=== PATIENT | female | born 1940 | race Caucasian/White ===

== ENCOUNTER 2018-01-28 09:52 | Day surgery (SDC) | payer MEDICARE, OTHER ==
[2018-01-25 12:36] VITALS: BMI 40.9
--- NOTE | 2018-01-28 13:36 | OP ---
PREOPERATIVE DIAGNOSES: Epigastric pain, gastroesophageal reflux disease, history of adenomatous col on polyps and chronic diarrhea. PROCEDURE IN DETAIL: After informed consent was obtained, the patient was placed in the left lateral decubitus position. Anesthesia was administered per the Anesthesia Department. Forward-viewing end oscope was inserted into the esophagus under direct visualization with ease and passed to the second portion of the duodenum with ease. Second portion of the duodenum and duodenal bulb were normal. Ra ndom biopsies were taken from the second portion of the duodenum. The pylorus was normal. In the pr epyloric antrum, some nodular folds were noted and these were biopsied. Retroflexion in the stomach was normal except for a large hiatal hernia. The esophagus was normal throughout. ASSESSMENT: 1. Large hiatal hernia. 2. Nodular gastritis in the antrum - status post biopsy. 3. Random biopsies of the second portion of the duodenum. 4. Otherwise normal esophagogastroduodenoscopy. RECOMMENDATIONS: 1. Await histopathology. 2. Proceed with colonoscopy. PROCEDURE IN DETAIL: After informed consent was obtained, the patient was placed in the left lateral decubitus position. Anesthesia was administered per the Anesthesia Department. Forward-viewing end oscope was inserted into the rectum after perianal inspection and rectal exam were normal and passed to the cecum and ileum with ease. The ileum, ileocecal valve, and appendiceal orifice were normal. The prep was excellent. The ascending, transverse, descending, sigmoid and rectum were all normal ex cept for multiple polyps. Most of these polyps were pedunculated. There were 1 polyp in the rectum, 2 in the sigmoid, 3 in the descending, 5 in the transverse and 3 in the ascending. Random biopsies were also taken randomly from the colon. ASSESSMENT: 1. A 14 colon polyps - status post polypectomy. 2. Internal hemorrhoids. 3. Otherwise normal ileocolonoscopy. RECOMMENDATION: 1. Await histopathology. 2. Repeat colonoscopy based on histopathology results.
== END 2018-01-28 14:10 | disposition home or self-care (01) ==
LOC: SDC 09:52
PROVIDERS: ATTEND Internal Medicine Gastroenterology
PROC: 0DB98ZX Excision of Duodenum, Via Natural or Artificial Opening Endoscopic, Diagnostic (ICD-10-PCS; principal; 2018-01-28)
PROC: 0DB78ZX Excision of Stomach, Pylorus, Via Natural or Artificial Opening Endoscopic, Diagnostic (ICD-10-PCS; 2018-01-28)
PROC: 0DBK8ZX Excision of Ascending Colon, Via Natural or Artificial Opening Endoscopic, Diagnostic (ICD-10-PCS; 2018-01-28)
PROC: 0DBL8ZX Excision of Transverse Colon, Via Natural or Artificial Opening Endoscopic, Diagnostic (ICD-10-PCS; 2018-01-28)
PROC: 0DBN8ZX Excision of Sigmoid Colon, Via Natural or Artificial Opening Endoscopic, Diagnostic (ICD-10-PCS; 2018-01-28)
PROC: 0DBP8ZX Excision of Rectum, Via Natural or Artificial Opening Endoscopic, Diagnostic (ICD-10-PCS; 2018-01-28)
PROC: 0DBM8ZX Excision of Descending Colon, Via Natural or Artificial Opening Endoscopic, Diagnostic (ICD-10-PCS; 2018-01-28)
DX: D12.6 Benign neoplasm of colon, unspecified (principal); K31.9 Disease of stomach and duodenum, unspecified; K29.60 Other gastritis without bleeding; K21.9 Gastro-esophageal reflux disease without esophagitis; K52.9 Noninfective gastroenteritis and colitis, unspecified; K44.9 Diaphragmatic hernia without obstruction or gangrene; K64.8 Other hemorrhoids; Z86.010 Personal history of colon polyps; Z79.4 Long term (current) use of insulin; Z79.82 Long term (current) use of aspirin; Z79.899 Other long term (current) drug therapy
CPT/HCPCS: 36416; 88305; 88312

== ENCOUNTER 2018-11-24 12:41 | Emergency (ER) | payer MEDICARE, OTHER ==
[2018-11-24 13:46] LABS: #Basophils 0.1 thou/uL (0.0-0.2); #Eosinphils 0.1 thou/uL (0.0-0.7); #Lymphocytes 2.5 thou/uL (1.20-3.40); #Monocytes 0.8 thou/uL (0.11-0.59); #Neutrophils 4.4 thou/uL (1.40-6.50); %Basophils 1.4 % (0.0-1.0); %Lymphocytes 31.5 % (21.0-51.0); %Monocytes 9.9 % (0.0-10.0); %Neutrophils 56.3 % (42.0-75.0); Hemoglobin 11.4 g/dL (12.0-16.0); Mean Corpuscular HGB CONC 34.2 g/dL (32.0-36.0); Mean Corpuscular Hemoglobin 35.5 pg (27.0-31.0); Mean Platelet Volume 7.8 fL (7.4-10.4); Platelet Count 263 thou/uL (130-400); RBC Distribution Width 13.1 % (11.5-14.5); Red Blood Cell (RBC) Count 3.21 mill/uL (4.20-5.40); White Blood Cell (WBC) Count 7.8 thou/uL (4.8-10.8)
[2018-11-24 14:06] LABS: ALT (SGPT) 11 U/L (8-55); AST (SGOT) 10 U/L (5-34); Albumin 4.1 g/dL (3.4-4.8); Alkaline Phosphatase 87 U/L (40-150); Anion Gap 17 mmol/L (10-20); BUN (Urea Nitrogen) 39 mg/dL (9.8-20.1); Bilirubin, Total 0.4 mg/dL (0.2-1.2); Calc. Creatinine Clearance 0 mL/min (70-130); Calcium 9.7 mg/dL (7.8-10.44); Carbon Dioxide 21 mmol/L (23-31); Chloride 107 mmol/L (98-107); Estimated GFR-MDRD 32; Globulin 3.2 g/dL (2.4-3.5); Glucose 233 mg/dL (83-110); Potassium 4.6 mmol/L (3.5-5.1); Protein, Total 7.3 g/dL (6.0-8.3); Sodium 140 mmol/L (136-145)
--- NOTE | 2018-11-24 14:07 | RAD ---
EXAM: Portable chest PROVIDED CLINICAL HISTORY: Chest pain COMPARISON: 01/28/2009 FINDINGS: Evaluation is limited by lung hypoinflation and patient body habitus. Cardiac silhouette appears enla rged. Left subclavian cardiac pacing device, median sternotomy changes, dorsal column stimulator device noted. Hiatal hernia suspected. No focal consolidation, pleural fluid or pneumothorax evident. IMPRESSION: Hypoinflated exam.
== END 2018-11-24 16:00 | disposition home or self-care (01) ==
LOC: ERS 12:41
DX: I13.0 Hypertensive heart and chronic kidney disease with heart failure and stage 1 through stage 4 chronic kidney disease, or unspecified chronic kidney disease (principal); E11.22 Type 2 diabetes mellitus with diabetic chronic kidney disease; N18.9 Chronic kidney disease, unspecified; I50.9 Heart failure, unspecified; I25.10 Atherosclerotic heart disease of native coronary artery without angina pectoris; I25.2 Old myocardial infarction; Z79.4 Long term (current) use of insulin; Z79.82 Long term (current) use of aspirin; Z79.899 Other long term (current) drug therapy
CPT/HCPCS: 71045; 80053; 83880; 84484; 85025; 93005

== ENCOUNTER 2020-03-23 12:24 | Inpatient (IN) | payer MEDICARE, OTHER ==
[~2020-03-23 12:24] MED LIST: Iopamidol 370 76% 100 ML VIAL ONE
--- NOTE | 2020-03-23 13:16 | RAD ---
Exam: Chest one view HISTORY:Altered mental status Comparison: Syncopal episode FINDINGS: Cardiac silhouette:Normal cardiac silhouette. Stable 3-lead defibrillator. Stable sternotomy wires. Aorta: Atherosclerosis Pulmonary vessels: Normal Costophrenic angles: Clear LUNGS: Persistently diminished lung volumes with chronic changes. Accentuation of the interstitium ma y be due to diminished lung volumes. However, edema cannot be excluded. No consolidation or mass. Pneumothorax: None Osseous abnormalities: None IMPRESSION: 1. Atherosclerosis. 2. Persistently diminished lung volumes. There is resultant accentuation of the interstitium. Edema c annot be excluded.
[2020-03-23 13:17] LABS: Bacteria/HPF None Seen HPF (None Seen); Bilirubin Negative (Negative); Blood, Urine Negative (Negative); Clarity Clear (Clear); Glucose, Urine (Dipstick) Greater than 1000 mg/dL (Negative); Ketone, Urine 20 mg/dL (Negative); Leukocyte Negative Leu/uL (Negative); Nitrite Negative (Negative); Protein, Urine (Dipstick) 30 mg/dL (Neg-Trace); RBC/HPF 0-3 HPF (0-3); Specific Gravity, Urine 1.016 (1.002-1.036); Squamous Epithelial 0-3 HPF (0-3); Urobilinogen Normal mg/dL (Less than 2); WBC/HPF 0-3 HPF (0-3)
[2020-03-23 13:48] LABS: #Eosinphils 0.1 thou/uL (0.0-0.7); #Lymphocytes 1.3 thou/uL (1.20-3.40); #Monocytes 0.7 thou/uL (0.11-0.59); #Neutrophils 5.8 thou/uL (1.40-6.50); %Basophils 0.6 % (0.0-1.0); %Eosinophils 1.3 % (0.0-10.0); %Lymphocytes 16.8 % (21.0-51.0); %Monocytes 8.2 % (0.0-10.0); %Neutrophils 73.1 % (42.0-75.0); Hemoglobin 12.6 g/dL (12.0-16.0); Mean Corpuscular HGB CONC 33.9 g/dL (32.0-36.0); Mean Corpuscular Hemoglobin 32.7 pg (27.0-31.0); Mean Corpuscular Volume 96.5 fL (78.0-98.0); Mean Platelet Volume 8.2 fL (7.4-10.4); Platelet Count 225 thou/uL (130-400); RBC Distribution Width 13.5 % (11.5-14.5); Red Blood Cell (RBC) Count 3.86 mill/uL (4.20-5.40)
[2020-03-23 14:14] LABS: ALT (SGPT) 12 U/L (8-55); AST (SGOT) 13 U/L (5-34); Albumin 3.8 g/dL (3.4-4.8); Alkaline Phosphatase 82 U/L (40-110); Anion Gap 18 mmol/L (10-20); BUN (Urea Nitrogen) 31 mg/dL (9.8-20.1); Bilirubin, Total 0.4 mg/dL (0.2-1.2); Calc. Creatinine Clearance 0 mL/min (70-130); Calcium 9.4 mg/dL (7.8-10.44); Carbon Dioxide 19 mmol/L (23-31); Chloride 104 mmol/L (98-107); Estimated GFR-MDRD 34; Globulin 3.2 g/dL (2.4-3.5); Potassium 4.3 mmol/L (3.5-5.1); Sodium 137 mmol/L (136-145)
[2020-03-23 14:19] LABS: Glucose 635 mg/dL (83-110)
[2020-03-23] MEDS ORDERED: NS 0.9% w/ 20 MEQ KCL 1,000 ML IV SCH (15:30)
[2020-03-23] MEDS ORDERED: Cefepime 2 GM VIAL ONE (15:34)
[2020-03-23] MEDS ORDERED: Aspirin 325 MG TAB ONE (15:34)
[2020-03-23] MEDS ORDERED: INSULIN REGULAR IN 0.9 % NACL 100 UNIT/100 ML BAG ONE (15:34)
[2020-03-23] MEDS ORDERED: Insulin Regular 300 UNITS/3 ML VIAL ONE ×2 (15:36→20:47)
[2020-03-23 16:07] LABS: Base Excess-Venous -2.6 mmol/L (-2.0 to 3.0); Bicarbonate (HCO3v) 22.7 mmol/L (22.0-28.0); CO2 Tension (PvCO2) 40.5 mmHg (40.0-50.0); Calcium, Ionized 1.15 mmol/L (1.15-1.33); Chloride 108 mmol/L (98-107); Hemoglobin - Calc 13.3 g/dL (12.0-16.0); Potassium 4.1 mmol/L (3.5-5.1); Sodium 139 mmol/L (138-145); vO2 Saturation-calc 89.8 % (60.0-85.0)
[2020-03-23 16:45] LABS: PTT 32.6 sec (22.9-36.1); Prothrombin Time 13.6 sec (12.0-14.7)
[2020-03-23 16:51] LABS: Hemoglobin A1c 9.1 % (4.0-6.0)
[2020-03-23 17:00] LABS: Troponin I 0.125 ng/mL (< 0.028)
[2020-03-23 17:03] LABS: Phosphorus 1.6 mg/dL (2.3-4.7)
[2020-03-23] MEDS ORDERED: Sodium Chloride 0.9% 1,000 ML IV PRN ×4 (17:10)
[2020-03-23] MEDS ORDERED: Electrolyte Replacement Protoc 1 EACH EACH IVPB ONE (17:10)
[2020-03-23] MEDS ORDERED: NS 0.9% w/ 20 MEQ KCL 1,000 ML IV PRN ×2 (17:10)
[2020-03-23] MEDS ORDERED: Dextrose 5 %-0.45 % NaCl 1,000 ML IV PRN (17:10)
[2020-03-23] MEDS ORDERED: D5 1/2 NS w/20 mEq KCL 1,000 ML IV PRN (17:10)
[2020-03-23] MEDS ORDERED: Acetaminophen 325 MG TAB PO PRN (17:11)
[2020-03-23] MEDS ORDERED: Ondansetron PF 4 MG/2 ML Vial IVP PRN (17:11)
[2020-03-23] MEDS ORDERED: Senokot S 8.6-50 MG TAB PO PRN (17:11)
[2020-03-23] MEDS ORDERED: Ondansetron ODT 4 MG TAB PO PRN (17:11)
[2020-03-23] MEDS ORDERED: HUMULIN R 100 UNITS in Sodium Chloride 0.9% 100 ML IVPB SCH (17:15)
[2020-03-23 17:44] LABS: Anion Gap 18 mmol/L (10-20); BUN (Urea Nitrogen) 30 mg/dL (9.8-20.1); Calc. Creatinine Clearance 0 mL/min (70-130); Calcium 9.3 mg/dL (7.8-10.44); Carbon Dioxide 18 mmol/L (23-31); Chloride 107 mmol/L (98-107); Estimated GFR-MDRD 33; Glucose 488 mg/dL (83-110); Potassium 4.3 mmol/L (3.5-5.1); Sodium 139 mmol/L (136-145)
[2020-03-23] MEDS ORDERED: Potassium Phosphate 15 MMOL in Sodium Chloride 0.9% 250 ML 250 ML IVPB SCH (18:30)
[2020-03-23] MEDS ORDERED: Electrolyte Replacement Protoc 1 EACH EACH IVPB SCH (18:45)
[2020-03-23] MEDS ORDERED: Insulin Regular 300 UNITS/3 ML VIAL SC PRN ×2 (19:21)
[2020-03-23] MEDS ORDERED: Dextrose 50% Abboject 50 ML SYRINGE SLOW IVP PRN (19:21)
[2020-03-23] MEDS ORDERED: Dextrose 5% in Water 1,000 ML IV PRN (19:21)
[2020-03-23] MEDS ORDERED: Nitroglycerin 0.4 MG TAB (25 Tab Bottle) SL PRN (19:24)
[2020-03-23 20:02] LABS: Troponin I 0.285 ng/mL (< 0.028)
--- NOTE | 2020-03-23 20:53 | HP ---
PRIMARY CARE PHYSICIAN: Dr. Thompson at [facility]. CHIEF COMPLAINT: Altered mentation. HISTORY OF PRESENT ILLNESS: The patient is a 79-year-old female with diabetes mellitus type 2, coronary artery disease status post CABG, with recent rib fractures, presented to the emergency room with altered mentation. History obtained from the daughter at the bedside. The patient had rib fractures approximately 10 days ago, when she was doing laundry. She bent forward over the washing machine to reach down into the bottom of it, when she heard and felt a snap. Workup was consistent with multiple rib fractures on the right side. She was managed conservatively with pain medications. She also has a long history of diabetes and is on Levemir. The patient was brought into the emergency room due to altered mentation. The last time she was seen normal was yesterday. The patient's daughter went to check on her and was found to have more confusion with disorientation on her couch. There was no fall, fever, or other symptoms reported. The patient denies any chest discomfort, palpitations, or syncope. In the emergency room, her initial vital signs showed temperature 98, respirations of 20, pulse rate of 110, with blood pressure of 142/69, O2 saturation 99% on room air. She was found to have blood sugar of 635, with ketones of 1.52. Her serum osmolality was 323, with hemoglobin A1c of 9.1. She was started on IV hydration for possible hyperosmolar hyperglycemia. She also received 2 g IV cefepime. Blood cultures and urine cultures were sent. PAST MEDICAL HISTORY: 1. Coronary artery disease, status post CABG, followed by Dr. Aguilar. 2. History of carotid artery disease, status post stent placement. 3. Cardiomyopathy with ejection fraction 40% to 45%. 4. Anxiety. 5. History of AICD placement. 6. Anemia. 7. Claustrophobia. 8. Chronic pain syndrome. 9. Diabetes mellitus, type 2. 10. Fibromyalgia. 11. GERD. 12. History of coronary stent placement. 13. History of renal stent placement. 14. Hypertension. 15. Hyperlipidemia. 16. History of TIA. PAST SURGICAL HISTORY: 1. Recent rib fracture. 2. Right carotid stent. 3. Cataract surgery. 4. Cholecystectomy. 5. Cardiac catheterization with stent placement. 6. Coronary artery bypass grafting. 7. Hysterectomy. 8. Renal artery stent placement. 9. Right total knee arthroplasty. ALLERGIES: THE PATIENT DENIES ANY DRUG ALLERGIES. CURRENT HOME MEDICATIONS: Family to provide accurate list of medications. The list got misplaced in the emergency room per family. SOCIAL HISTORY: The patient is . No smoking or drug use. She drinks alcohol socially. She does not have home health care. FAMILY HISTORY: Positive for heart disease. REVIEW OF SYSTEMS: Cannot be reliably obtained from the patient due to current mentation. PHYSICAL EXAMINATION: VITAL SIGNS: As discussed above. GENERAL: A 79-year-old female with altered mentation. Mentation is gradually improving. HEENT: Head, atraumatic and normocephalic. Sclerae are anicteric. Dry mucous membrane. No oral lesion. NECK: Supple. No JVD appreciated. No carotid bruit. LUNGS: Clear to auscultation bilaterally with diminished air entry at bilateral bases. HEART: S1 and S2 present, regular rate and rhythm. No rubs or gallops. ABDOMEN: Soft, nontender. Bowel sounds present. No rebound or guarding. EXTREMITIES: No calf tenderness. There is bilateral 1+ edema. NEUROLOGIC: Grossly nonfocal. Moves all 4 extremities. Power was 5/5 in all extremities. Detailed neurology and psychiatry examination cannot be reliably obtained due to current mentation. SKIN: Warm and dry. LYMPH NODES: No palpable lymph nodes in the neck. PERIPHERAL VASCULAR: Radial pulses palpable bilaterally, low volume. LABORATORY FINDINGS: Serum osmolality 323, with blood glucose of 635. Hemoglobin A1c 9.1. Troponin initially was 0.049. Repeat troponin was 0.125. Ketones 1.52. Creatinine 1.50, phosphorus 1.6, magnesium 2.0, with bicarbonate of 18, sodium 139, potassium 4.3. Urinalysis was negative for wbc or bacteria. IMAGING STUDIES: Chest x-ray by my review was negative for infiltrate or edema. CT of the [place] showed evidence of prior MCA infarction on the right without any acute hemorrhage. EKG by my review showed sinus tachycardia with frequent paced rhythm with nonspecific ST-T wave changes. IMPRESSION: 1. Toxic metabolic encephalopathy. 2. Suspected hyperosmolar hyperglycemic state of unclear etiology. 3. Severe dehydration with elevated osmolality of 323. 4. Chronic kidney disease, stage 3. 5. Elevated troponin, probably secondary to severe dehydration. 6. Metabolic acidosis, secondary to elevated ketones. 7. Hypophosphatemia. 8. Coronary artery disease, status post coronary artery bypass grafting and stent placement. 9. History of AICD placement. 10. Anxiety. 11. Recent rib fracture. 12. Chronic pain syndrome. 13. Hypertension. 14. Hyperlipidemia. 15. Gastroesophageal reflux disease. PLAN: The patient will be monitored in the IMCU. We will continue insulin drip along with IV fluids per DKA protocol. The family is able to name some of the medications, which will be started tonight. Rest of the medication to be restarted in a.m. We will also check AICD. Frequent neuro checks. DVT prophylaxis with subcu heparin. Physical therapy, occupation therapy. Echocardiogram will be obtained. We will recheck ketones in a.m. We will check basic metabolic profile every 4 hours. Code status: Full code. Surrogate decision maker: The patient makes her own decision with the help of her family. Contact number for daughter, Lamonte, . Lamonte was at the bedside in the emergency room. The patient will require 2 to 3 days for stabilization. Job ID: [id number]
[2020-03-23] MEDS ORDERED: Famotidine 20 MG TAB PO SCH (21:00)
[2020-03-23] MEDS ORDERED: cefTRIAXone\\ROCEPHIN 1 GM in Sodium Chloride 0.9% 100 ML IVPB SCH (21:00)
[2020-03-23] MEDS ORDERED: Famotidine/PF 20 mg/2ml Vial SLOW IVP SCH (21:00)
[2020-03-23] MEDS ORDERED: cefTRIAXone\\ROCEPHIN 1 GM VIAL ONE (22:10)
[2020-03-23] MEDS: Carvedilol 6.25 MG TAB PO SCH (22:18)
[2020-03-23] MEDS: NS 0.9% w/ 20 MEQ KCL 1,000 ML IV SCH (22:26)
[2020-03-23] MEDS ORDERED: Heparin 10,000 UNITS/ 10 ML VIAL ONE (23:51)
[2020-03-24] MEDS: Labetalol HCl 100 MG/20 ML VIAL SLOW IVP PRN ×4 (01:50→15:21)
[2020-03-24] MEDS: Heparin 5,000 UNITS/ML VIAL SC SCH ×3 (01:51→21:45)
[2020-03-24] MEDS: Magnesium 2 GM/50 ML 2 GM in Premix Bag 1 BAG IVPB SCH ×2 (02:05→05:22)
[2020-03-24 04:22] LABS: #Eosinphils 0.2 thou/uL (0.0-0.7); #Lymphocytes 1.9 thou/uL (1.20-3.40); %Basophils 0.4 % (0.0-1.0); %Eosinophils 1.8 % (0.0-10.0); %Lymphocytes 16.9 % (21.0-51.0); %Neutrophils 71.9 % (42.0-75.0); Hemoglobin 11.9 g/dL (12.0-16.0); Mean Corpuscular HGB CONC 34.4 g/dL (32.0-36.0); Mean Corpuscular Hemoglobin 32.7 pg (27.0-31.0); Mean Platelet Volume 8.2 fL (7.4-10.4); Platelet Count 223 thou/uL (130-400); RBC Distribution Width 13.7 % (11.5-14.5); Red Blood Cell (RBC) Count 3.66 mill/uL (4.20-5.40); White Blood Cell (WBC) Count 11.2 thou/uL (4.8-10.8)
[2020-03-24 04:36] LABS: ALT (SGPT) 9 U/L (8-55); AST (SGOT) 13 U/L (5-34); Albumin 3.5 g/dL (3.4-4.8); Alkaline Phosphatase 75 U/L (40-110); Anion Gap 17 mmol/L (10-20); BUN (Urea Nitrogen) 20 mg/dL (9.8-20.1); Bilirubin, Total 0.4 mg/dL (0.2-1.2); Calc. Creatinine Clearance 0 mL/min (70-130); Calcium 8.8 mg/dL (7.8-10.44); Carbon Dioxide 16 mmol/L (23-31); Chloride 111 mmol/L (98-107); Estimated GFR-MDRD 45; Globulin 2.8 g/dL (2.4-3.5); Glucose 380 mg/dL (83-110); Magnesium 1.9 mg/dL (1.6-2.6); Phosphorus 2.6 mg/dL (2.3-4.7); Potassium 4.2 mmol/L (3.5-5.1); Protein, Total 6.3 g/dL (6.0-8.3); Sodium 140 mmol/L (136-145)
[2020-03-24 04:47] VITALS: BMI 40.2
[2020-03-24] MEDS ORDERED: Magnesium 2 GM/50 ML 2 GM in Premix Bag 1 BAG IVPB SCH (05:15)
[2020-03-24] MEDS ORDERED: Sodium Chloride 0.9% 1,000 ML IV SCH (05:30)
[2020-03-24] MEDS: Insulin Regular 300 UNITS/3 ML VIAL SC PRN ×4 (05:40→22:49)
[2020-03-24] MEDS: Levothyroxine Sodium 75 MCG TAB PO SCH (05:42)
[2020-03-24] MEDS: NS 0.9% w/ 20 MEQ KCL 1,000 ML IV SCH (06:05)
[2020-03-24] MEDS: Carvedilol 6.25 MG TAB PO SCH ×2 (08:58→21:43)
[2020-03-24] MEDS: Clopidogrel Bisulfate 75 MG TAB PO SCH (08:58)
[2020-03-24] MEDS: Aspirin 81 mg Enteric Coated Tablet PO SCH (08:58)
[2020-03-24] MEDS ORDERED: Insulin Glargine 50 UNITS in Pre-Filled Syringe 1 EACH SC SCH (09:45)
--- NOTE | 2020-03-24 10:43 | CT ---
CT angiogram of the head and neck: 03/23/2020 Comparison made to prior head CT 10/08/2012 HISTORY: Altered mental status, possible drug overdose TECHNIQUE: Axial CT imaging at 5 mm intervals from vertex through skull base without contrast. Then, axial CT imaging at 1.25 mm intervals from the vertex through the lung apices with IV contrast using CT angiogram protocol. Coronal and sagittal 3-D reformatted imaging obtained. FINDINGS: The noncontrast enhanced head CT demonstrates encephalomalacia within the right frontal reg ion as on the prior examination, evidence of prior right MCA infarction. No intracranial hemorrhage, midline shift, or mass effect. The paranasal sinuses and mastoid air cells are well-aerat ed. No displaced calvarial fracture. Midline sternotomy wires are present. Partially imaged transvenous pacing device present. The imaged lung apices appear unremarkable. There is circumferential atherosclerotic calcification of the aortic arch just proximal to the origin of the left subclavian artery. There is atherosclerotic calcification at the origin of the left subclavian artery. There is a bovine arch noted. Origin of the innominate artery, the left common car otid artery, the right common carotid artery, and the right subclavian artery demonstrate no hemodynamically significant stenosis. Bilateral vertebral arteries are patent. On the basis of NASCET criteria there is no hemodynamically significant stenosis involving the left c ommon carotid artery or the left internal carotid artery. There is mild atherosclerotic plaque at the origin of the left internal carotid artery. There is a stent measuring 3.6 cm in craniocaudal dimension within the right common carotid artery, e xtending into the region of the proximal right internal carotid artery. Probable at least mild IntraStent stenosis noted at the junction of the right common and internal carotid arteries, not well assessed on this exam. The right internal carotid artery distal to the above-described patent stent demonstrates no hemodynamically significant stenosis. The basilar artery and its branches appear patent. No posterior circulation vascular occlusion or sac cular aneurysm is appreciated. Mild/moderate areas of distal [employer] stenosis noted, right greater than left. There is atherosclerotic calcification of bilateral cavernous carotid arteries. The M1 segment is patent bilaterally. There is stenosis at the origin of the anterior inferior right M2 branch with distal occlusion of this branch consistent with the area of chronic infarction. No evidence for acute central arterial occlusion noted involving distal MCA or GAVINO branches. No evidence for a saccular aneurysm of the anterior circulation. Orbits/globes appear grossly unremarkable. Retroantral fat, parapharyngeal fat, parotid glands, and submandibular glands grossly unremarkable bi laterally. Region of the tonsillar pillars, epiglottis and preepiglottic fat, hyoid bone, thyroid cartilage, cricoid cartilage, and level of the glottis appear unremarkable. There is a hypodense lesion suspected in the left lobe of the thyroid gland anteriorly measuring 1.9 cm. Follow-up thyroid ultrasound suggested. No lymphadenopathy is seen in the neck. No acute osseous abnormality. IMPRESSION: Evidence of prior MCA infarction on the right. No evidence for acute hemorrhage. Patent arterial stent within the distal right CCA and proximal right ICA. Hypodense left thyroid nodule for which follow-up ultrasound advised. Transcribed Date/Time: 03/24/2020 10:43 AM
[2020-03-24] MEDS ORDERED: hydrALAZINE 25 MG TAB PO SCH (16:15)
[2020-03-24] MEDS ORDERED: Amlodipine 10 MG TAB PO SCH (16:15)
--- NOTE | 2020-03-24 16:23 | PDOC.HOSPP ---
- Subjective Encounter Date: 03/24/20 Subjective: The patient is confused. - Objective Vital Signs & Weight: Vital Signs (12 hours) Temp Pulse Pulse Pulse Resp BP BP 03/24/20 15:11 98.2 F 72 18 03/24/20 14:42 198/87 H 03/24/20 11:40 98.1 F 71 19 03/24/20 11:04 74 72 192/89 H 182/79 H 03/24/20 08:48 97.8 F 78 20 03/24/20 08:35 03/24/20 04:47 97.9 F 82 16 BP BP Pulse Ox 03/24/20 15:11 192/88 H 96 03/24/20 14:42 03/24/20 11:40 197/79 H 94 L 03/24/20 11:04 03/24/20 08:48 189/89 H 95 03/24/20 08:35 93 L 03/24/20 04:47 190/90 H 93 L Weight Weight 220 lb 1.6 oz I&O: 03/23/20 03/24/20 03/25/20 06:59 06:59 06:59 Intake Total 1940 1020 Output Total 630 270 Balance 1310 750 Result Diagrams: 03/24/20 03:56 03/24/20 03:56 Additional Labs: Accuchecks 03/24/20 03/24/20 03/23/20 11:16 04:46 20:44 POC Glucose 348 H 357 H 418 H 03/23/20 03/23/20 03/23/20 19:25 18:24 17:05 POC Glucose 396 H 367 H 375 H 03/23/20 16:24 POC Glucose 450 H Hospitalist ROS - Medication Medications: Active Medications Generic Name Dose Route Start Last Admin Trade Name Freq PRN Reason Stop Dose Admin Aspirin 81 mg 03/24/20 09:00 03/24/20 08:58 Aspirin 81 Mg Enteric Coated Tablet PO 81 mg DAILY RALPH Administration Carvedilol 12.5 mg 03/23/20 21:00 03/24/20 08:58 Carvedilol 6.25 Mg Tab PO 12.5 mg BID RALPH Administration Clopidogrel Bisulfate 75 mg 03/24/20 09:00 03/24/20 08:58 Clopidogrel Bisulfate 75 Mg Tab PO 75 mg DAILY RALPH Administration Heparin Sodium (Porcine) 5,000 units 03/23/20 21:00 03/24/20 08:59 Heparin 5,000 Units/Ml Vial SC 5,000 units BID RALPH Administration Ceftriaxone Sodium 1 gm/ 100 mls @ 200 mls/hr 03/23/20 21:00 03/23/20 22:29 Sodium Chloride IVPB 100 mls Q24HR RALPH Administration Sodium Chloride 1,000 mls @ 75 mls/hr 03/24/20 05:30 03/24/20 05:23 Normal Saline 0.9% IV 1,000 mls .[id number] RALPH Administration Insulin Human Regular 0 units 03/23/20 19:26 03/24/20 12:06 Insulin Regular 300 Units/3 Ml Vial SC 5 unit .MILD SLIDING SCALE PRN Administration Mild Correctional Scale Labetalol HCl 10 mg 03/23/20 20:11 03/24/20 15:21 Labetalol Hcl 100 Mg/20 Ml Vial SLOW IVP 10 mg Q1H PRN Administration Systolic BP > 180 Levothyroxine Sodium 75 mcg 03/24/20 06:00 03/24/20 05:42 Levothyroxine Sodium 75 Mcg Tab PO 75 mcg 0600 RALPH Administration Pantoprazole Sodium 40 mg 03/24/20 09:00 03/24/20 08:58 Pantoprazole 40 Mg Tab PO 40 mg DAILY RALPH Administration Sodium Chloride 10 ml 03/23/20 21:00 03/24/20 08:58 Flush - Normal Saline 10 Ml Syringe IVF 10 ml Q12HR RALPH Administration - Exam General Appearance: awake alert ENT: normocephalic atraumatic Neck: supple, no JVD Heart: RRR, no murmur, no gallops, no rubs Respiratory: CTAB, no wheezes, no rales, no ronchi Neurological: no focal deficits Hosp A/P (1) Hypertensive urgency Code(s): I16.0 - HYPERTENSIVE URGENCY Status: Acute (2) Metabolic encephalopathy Code(s): G93.41 - METABOLIC ENCEPHALOPATHY Status: Acute (3) HHS (hypothenar hammer syndrome) Code(s): I73.89 - OTHER SPECIFIED PERIPHERAL VASCULAR DISEASES Status: Acute (4) CKD (chronic kidney disease) Code(s): N18.9 - CHRONIC KIDNEY DISEASE, UNSPECIFIED Status: Acute (5) Elevated troponin Code(s): R77.8 - OTHER SPECIFIED ABNORMALITIES OF PLASMA PROTEINS Status: Acute - Plan The patient's hyperglycemia somewhat improved since yesterday. Lantus 50 units subcu in the morning was started. Her blood pressure has been elevated in the range of 200s systolic. We will add hydralazine, isosorbide mononitrate, and amlodipine to the patient's blood pressure medication regimen. CT angiogram of the head and neck did not show any acute changes. The patient remains significantly confused. No signs of sepsis. We will optimize her blood pressure and blood glucose and see if that impacts her mental status.
[2020-03-24 16:51] LABS: SARS-CoV-2 MS2 Positive; SARS-CoV-2 N Gene Negative; SARS-CoV-2 S Gene Negative; SARS-CoV-2 by NAA Not Detected (NotDetected); SARS-CoV-2 orf1ab Negative
[2020-03-24] MEDS ORDERED: FLU VACC QS2020-21(65YR UP)/PF 240 MCG/0.7 ML SYRINGE IM ONE (21:00)
[2020-03-24] MEDS: hydrALAZINE 25 MG TAB PO SCH (21:44)
[2020-03-25 04:36] LABS: #Eosinphils 0.1 thou/uL (0.0-0.7); #Lymphocytes 1.9 thou/uL (1.20-3.40); #Monocytes 1.3 thou/uL (0.11-0.59); #Neutrophils 9.1 thou/uL (1.40-6.50); %Basophils 0.4 % (0.0-1.0); %Eosinophils 1.1 % (0.0-10.0); %Lymphocytes 14.9 % (21.0-51.0); %Monocytes 10.8 % (0.0-10.0); %Neutrophils 72.9 % (42.0-75.0); Hemoglobin 10.5 g/dL (12.0-16.0); Mean Corpuscular HGB CONC 34.9 g/dL (32.0-36.0); Mean Corpuscular Volume 94.7 fL (78.0-98.0); Mean Platelet Volume 7.8 fL (7.4-10.4); Platelet Count 195 thou/uL (130-400); RBC Distribution Width 13.6 % (11.5-14.5); Red Blood Cell (RBC) Count 3.19 mill/uL (4.20-5.40); White Blood Cell (WBC) Count 12.5 thou/uL (4.8-10.8)
[2020-03-25 05:08] LABS: Anion Gap 13 mmol/L (10-20); BUN (Urea Nitrogen) 17 mg/dL (9.8-20.1); Calc. Creatinine Clearance 60 mL/min (70-130); Calcium 8.5 mg/dL (7.8-10.44); Carbon Dioxide 22 mmol/L (23-31); Chloride 112 mmol/L (98-107); Estimated GFR-MDRD 42; Glucose 191 mg/dL (83-110); Potassium 3.7 mmol/L (3.5-5.1); Sodium 143 mmol/L (136-145)
[2020-03-25] MEDS ORDERED: Aspirin 325 MG TAB PO SCH (05:45)
[2020-03-25] MEDS: Levothyroxine Sodium 75 MCG TAB PO SCH (06:05)
[2020-03-25 07:51] LABS: Troponin I 0.287 ng/mL (< 0.028)
[2020-03-25] MEDS: Heparin 5,000 UNITS/ML VIAL SC SCH (08:45)
[2020-03-25] MEDS: hydrALAZINE 25 MG TAB PO SCH ×2 (08:45→14:56)
[2020-03-25] MEDS: Carvedilol 6.25 MG TAB PO SCH (08:46)
[2020-03-25] MEDS: Clopidogrel Bisulfate 75 MG TAB PO SCH (08:46)
[2020-03-25] MEDS: Aspirin 81 mg Enteric Coated Tablet PO SCH (08:46)
[2020-03-25] MEDS ORDERED: Amlodipine 10 MG TAB PO SCH (09:00)
[2020-03-25] MEDS ORDERED: Insulin Glargine 50 UNITS in Pre-Filled Syringe 1 EACH SC SCH (09:00)
[2020-03-25] MEDS: Insulin Regular 300 UNITS/3 ML VIAL SC PRN (11:40)
[2020-03-25 15:31] VITALS: BP 158/93; TEMP 98.5
--- NOTE | 2020-03-26 01:28 | DIS ---
DATE OF ADMISSION: 03/23/2020 DATE OF DISCHARGE: 03/25/2020 DISCHARGE DIAGNOSES: 1. Acute metabolic encephalopathy. 2. Hyperosmolar, hyperglycemic state. 3. Dehydration. 4. Chronic kidney disease stage 3. 5. Elevated troponin due to demand ischemia. 6. Metabolic acidosis. 7. Hypophosphatemia. 8. Coronary artery disease. 9. Anxiety. 10. History of rib fractures. 11. Chronic pain syndrome. 12. Hypertension. 13. Hyperlipidemia. 14. Gastroesophageal reflux disease. DISCHARGE MEDICATIONS: The patient will continue her home medications unchanged. 1. Imdur 30 mg orally daily. 2. Hydralazine 75 mg orally t.i.d. HISTORY OF PRESENT ILLNESS AND HOSPITAL COURSE: The patient is a 79-year-old female with past medical history of type 2 diabetes mellitus on insulin, coronary artery disease, and chronic pain syndrome, who was sent to the hospital due to altered mental status. The patient was found to be severely hyperglycemic with increased osmolality and was diagnosed with HHS without DKA. She was initiated on insulin drip and was transitioned to subcu insulin. The patient was also hypertensive with uncontrolled blood pressure. Her mental status started to improve when we were able to improve her sugar levels and blood pressure with insulin and adding antihypertensive medications. Her mental status returned to baseline prior to discharge. Job ID: [id number]
--- NOTE | 2020-03-26 08:23 | CON ---
DATE OF CONSULTATION: HISTORY OF PRESENT ILLNESS: The patient is a 79-year-old woman, who presented with altered mental status and noted to have an elevated troponin level. The patient has a long history of coronary artery disease. She is status post coronary artery bypass graft surgery x3, nearly 20 years ago. She also subsequently had PTCA and stent placement. The patient has also a history of ischemic cardiomyopathy. She has had placement of an automatic implantable cardiac defibrillator. The patient was in her usual state of health when 10 days ago she had a fall and cracked some ribs. She was admitted to the hospital and subsequently developed altered mental status. The patient did not recall having any fevers or chills. The patient states prior to developing fall and fractured rib, she was walking without chest pain or dyspnea. She denies having any PND or orthopnea. PAST MEDICAL HISTORY: 1. Coronary artery disease. 2. Ischemic cardiomyopathy. 3. Cerebrovascular disease. 4. Anxiety disorder. 5. Hypertension. 6. Dyslipidemia. 7. Diabetes mellitus. PAST SURGICAL HISTORY: 1. Rib fracture. 2. Stent surgery. 3. Cataract surgery. 4. Cholecystectomy. 5. Coronary artery bypass surgery. 6. Hysterectomy. 7. Knee surgery. ALLERGIES: NONE. FAMILY HISTORY: Positive family history of heart disease. SOCIAL HISTORY: Nonsmoker. REVIEW OF SYSTEMS: Ten-point system is otherwise unremarkable. No history of easy bruising or bleeding or bright-red blood per rectum. PHYSICAL EXAMINATION: GENERAL: This is a morbidly obese woman, in no acute distress. VITAL SIGNS: Blood pressure of 183/76. NECK: No jugular venous distention. LUNGS: Clear to auscultation. HEART: Regular rate and rhythm. Normal S1, S2 with a 2/6 systolic murmur. ABDOMEN: Distended. EXTREMITIES: Mild edema. VASCULAR: Radial pulses 2+. LABORATORY DATA: Sodium 143, potassium 3.7, chloride 112, bicarbonate 22, BUN 17, creatinine 1.2, glucose 191. Troponin was 0.31. White blood cell count 12.5, hemoglobin 10.5, hematocrit 30.2, and platelets 195. EKG an electronic ventricular pacemaker. IMPRESSION: 1. Altered mental status. 2. Mildly elevated troponin level. 3. History of coronary artery bypass surgery. 4. Cerebrovascular disease. 5. Aortic stenosis. 6. Hypertension. 7. Diabetes mellitus. 8. Morbid obesity. This patient presented with altered mental status. She is now completely coherent. It is unclear what was the etiology of her confusion. The patient was noted in her blood work to have one elevated troponin level. This may have been secondary to demand ischemia. The patient is completely asymptomatic from a cardiac standpoint. Her echocardiogram revealed a moderate decrease in left ventricular systolic function with moderate aortic stenosis. With her poorly-controlled hypertension, I suspect she has had demand ischemia. The patient should not be on a calcium channel neena since she has an ischemic cardiomyopathy. Would highly recommend we place her on Entresto. We will follow this patient with you through her hospitalization. Job ID: [id number] [facility]
--- NOTE | 2020-03-28 11:58 | EKG ---
Test Reason : STAT Blood Pressure : / mmHG Vent. Rate : 076 BPM Atrial Rate : 076 BPM P-R Int : 146 ms QRS Dur : 154 ms QT Int : 544 ms P-R-T Axes : 050 206 049 degrees QTc Int : 612 ms Ventricular paced rhythm Abnormal ECG When compared with ECG of 23-MAR-2020 12:37, (Unconfirmed) Vent. rate has decreased BY 38 BPM Confirmed by CANDICE ELENA (2) on 03/28/2020 11:58:01 AM Referred By: TYSHAWN Confirmed By:CANDICE ELENA
--- NOTE | 2020-03-29 09:30 | PQF ---
CLINICAL DOCUMENTATION CLARIFICATION FORM: Dear :Zechariah Nye Date / Time: 03/29/2020 09:29 Please exercise your independent, professional judgment in responding to the clarification form. Clinical indicators are provided on the bottom of this form for your review Can you please specify the etiology of patients encephalopathy? Please check appropriate box(es): [ >] HTN urgency [ ] DM with HHS [ ] Poisoning of Xanax and Hydrocodone [ ] Other diagnosis [ ] Unable to determine Physician Signature: Date/Time: For continuity of documentation, please document condition throughout progress notes and discharge summary. Thank You. To be completed by CDI/Coding staff for physician review: Present Clinical Indicators - Signs / Symptoms / Labs Results and Location in Medical Record [x] Acute metabolic encephalopathy DS 03/25 [x] Patient was found to be severely hyperglycemia with increased osmolality and was diagnosed with HHS without DKA DS 03/25 [x] patient was also hypertensive with uncontrolled blood pressure DS 03/25 [x] Her mental status started to improve when we were able to improve sugar levels and blood pressure DS 03/25 [x] Patient has been prescribed hydrocodone also takes Xanax unclear how much she has been taking ED Notes 03/23 Present Risk Factors Results and Location in Medical Record [x] 79 years old female DS 03/25 [x] DM with HHS DS 03/25 [x] Dehdyration DS 03/25 [x] CKD DS 03/25 [x] Acidosis DS 03/25 [x] Hypophosphatemia DS 03/25 Present Treatments Results and Location in Medical Record [x] Cardiology Consult Consult 03/25 [x] IVF AUG 11 [x] Monitor and replacement of electrolytes DS 03/25 [x] Glucagon 1mg IM AUG 11 [x] Labetalol 10mg IV AUG 11 CDS/[facility] [employer] Signature: Ramirolaura Lorrie Quigley Phone #: ext [phone] Date/Time: 03/29/2020 09:29 This is a permanent part of the Medical Record [facility]
== END 2020-03-25 15:31 | disposition home or self-care (01) | DRG 77 ==
LOC: ERS 12:24 → ERHOLD 16:51 → 2NO 03-24 00:37
PROVIDERS: ADMIT Internal Medicine; ATTEND Internal Medicine
DX: I67.4 Hypertensive encephalopathy (principal); E11.00 Type 2 diabetes mellitus with hyperosmolarity without nonketotic hyperglycemic-hyperosmolar coma (NKHHC); E87.2 Acidosis; I24.8 Other forms of acute ischemic heart disease; Z68.41 Body mass index [BMI] 40.0-44.9, adult; I12.9 Hypertensive chronic kidney disease with stage 1 through stage 4 chronic kidney disease, or unspecified chronic kidney disease; Z23 Encounter for immunization; I25.10 Atherosclerotic heart disease of native coronary artery without angina pectoris; E11.22 Type 2 diabetes mellitus with diabetic chronic kidney disease; I25.5 Ischemic cardiomyopathy; F41.9 Anxiety disorder, unspecified; D63.1 Anemia in chronic kidney disease; G89.29 Other chronic pain; M79.7 Fibromyalgia; K21.9 Gastro-esophageal reflux disease without esophagitis; E78.5 Hyperlipidemia, unspecified; Z96.651 Presence of right artificial knee joint; E86.0 Dehydration; N18.30 Chronic kidney disease, stage 3 unspecified; E83.39 Other disorders of phosphorus metabolism; I16.0 Hypertensive urgency; E11.51 Type 2 diabetes mellitus with diabetic peripheral angiopathy without gangrene; E66.01 Morbid (severe) obesity due to excess calories; I35.0 Nonrheumatic aortic (valve) stenosis; Z20.828 Contact with and (suspected) exposure to other viral communicable diseases; Z95.1 Presence of aortocoronary bypass graft; Z95.810 Presence of automatic (implantable) cardiac defibrillator; Z95.5 Presence of coronary angioplasty implant and graft; Z86.73 Personal history of transient ischemic attack (TIA), and cerebral infarction without residual deficits; I25.2 Old myocardial infarction; Z90.49 Acquired absence of other specified parts of digestive tract; Z90.710 Acquired absence of both cervix and uterus
CPT/HCPCS: 36415; 36416; 51701; 70496; 70498; 71045; 80048; 80053; 81003; 81015; 82010; 82330; 82553; 82803; 83036; 83605; 83735; 83930; 84100; 84484; 85025; 85610; 85730; 87040; 87086; 87149; 87635; 90471; 90662; 93005; 93010; 93306; 94760; 96365; 96366; 96376; G0008; J0692; J0696; J1644; J1815; J2405; J3475; J3480; J3490; J7050; Q9967; U0003